=== PATIENT | female | born 1975 | race Caucasian/White ===

== ENCOUNTER 2021-03-23 17:46 | Emergency (ER) | payer SELFPAY ==
--- NOTE | 2021-03-23 19:37 | EDM.PDOC ---
ED HPI GENERAL MEDICAL PROBLEM - General Chief Complaint: ENT Problem Stated Complaint: DENTAL COMPLAINT Time Seen by Provider: 03/23/21 19:19 Source of Information: Reports: Patient, RN Notes Reviewed History Limitations: Reports: No Limitations - History of Present Illness INITIAL COMMENTS - FREE TEXT/NARRATIVE: Patient is a 45-year-old female who presents to the ER for a dental complaint. States that she has been having some aching in her right lower jaw for the last few days however this morning the pain become unmanageable. She has taken 3 tablets of Advil, 2 tablets of naproxen for pain management today. She is concerned because the pain is shooting up into her ear, and down to her neck with some associated swelling into her lower mandible. Patient denies any other sick-like symptoms, fever/chills, cough/shortness of breath, nausea/vomiting/diarrhea. Left Lower Tooth/Teeth Pain Score (Numeric/FACES): 7 - Related Data Allergies Allergy/AdvReac Type Severity Reaction Status Date / Time No Known Allergies Allergy Verified 12/20/17 08:58 CDT Home Meds: Home Meds Amoxicillin/Clavulanate K [Augmentin 875-125 MG] 1 tab PO BID #14 tablet 03/23/21 [Rx] Hydrocodone/Acetaminophen [HYDROcodone-Acetaminophen 5-325 MG] 1 each PO Q6H PRN #12 tablet 03/23/21 [Rx] Past Medical History HEENT History: Reports: Other (See Below) (poor dentition) Social & Family History - Family History Family Medical History: No Pertinent Family History - Tobacco Use Tobacco Use Status *Q: Former Tobacco User Used Tobacco, but Quit: Yes Month/Year Tobacco Last Used: 02/2021 - Caffeine Use Caffeine Use: Reports: None - Recreational Drug Use Recreational Drug Use: No ED ROS ENT - Review of Systems Review Of Systems: Comprehensive ROS is negative, except as noted in HPI. ED EXAM, ENT - Physical Exam Exam: See Below Exam Limited By: No Limitations General Appearance: Alert, WD/WN, No Apparent Distress Eye Exam: Bilateral Eye: EOMI, Normal Inspection, PERRL Mouth/Throat: Normal Inspection, Normal Gums, Normal Lips, Dental Pain (R lower back molar). No: Pharyngeal Erythema, Throat Swelling Neck: Normal Inspection, Supple, Other (very mild tenderness to R lower mandible) Respiratory/Chest: No Respiratory Distress, Lungs Clear, Normal Breath Sounds, No Accessory Muscle Use, Chest Non-Tender Cardiovascular: Normal Peripheral Pulses, Regular Rate, Rhythm, No Edema Extremities: Normal Inspection, Normal Capillary Refill Neurological: Alert, Oriented, Normal Cognition, No Motor/Sensory Deficits Psychiatric: Normal Affect, Normal Mood Skin: Warm, Dry, Intact, Normal Color, No Rash Course - Vital Signs Last Recorded V/S: Last Vital Signs Temp 98.4 F 03/23/21 18:53 Pulse 62 03/23/21 18:53 Resp 20 03/23/21 18:53 BP 141/77 H 03/23/21 18:53 Pulse Ox 10 L 03/23/21 18:53 - Re-Assessments/Exams Free Text/Narrative Re-Assessment/Exam: 03/23/21 19:35 Patient presents to the ER for the evaluation of her dental complaint. We will go ahead and get her started on antibiotics, along with a few tablets of hydrocodone/acetaminophen 5/325 mg. Patient has a full bottle of naproxen tablets we will go ahead and have her take 2 tablets 3 times a day for ongoing management as well. Departure - Departure Time of Disposition: 19:35 Disposition: Home, Self-Care 01 Condition: Good Clinical Impression: Pain, dental - Discharge Information *PRESCRIPTION DRUG MONITORING PROGRAM REVIEWED*: Yes *COPY OF PRESCRIPTION DRUG MONITORING REPORT IN PATIENT SUMI: No Prescriptions: Amoxicillin/Clavulanate K [Augmentin 875-125 MG] 1 tab PO BID #14 tablet Hydrocodone/Acetaminophen [HYDROcodone-Acetaminophen 5-325 MG] 1 each PO Q6H PRN #12 tablet PRN Reason: Pain Instructions: Dental Pain, [id number] Referrals: PCP,None [Primary Care Provider] - Additional Instructions: You have been evaluated in the ED for your dental pain. You have been provided with a script for Augmentin. Please take this medication as directed. (1 tab twice daily's for 7 days or until gone). Please note this antibiotic can take up to 48 hours to provide coverage. If you do not notice an improvement in the swelling within 3 days time I recommend you seek care for reevaluation for change in antibiotics. This antibiotic can cause diarrhea, recommend that you start a probiotic while taking this medication. You already have a bottle of naproxen tablets, these are 220 mg tablets, you will need to take 2 tablets every 12 hours for the next few days for pain management purposes. You were given a prescription for a strong pain medication, hydrocodone/acetaminophen 5/325 mg, please take 1 tab every 6 hours as needed for pain not relieved by Tylenol or ibuprofen alone. Please note this medication does contain Tylenol in it, so do not take more than 4000 mg in a 24- hour time span. These medications can be addictive, so please take as few as possible to achieve adequate pain control. These meds can also be quite constipating, recommend that you increase your oral fluid intake and take a stool softener like MiraLAX while taking these medications. Do not drive while taking this medication. Medications have been electronically prescribed to the [facility] located in the [employer] [facility]. You may use hot pack/ ice packs to the affected area as tolerated in 15-20 minute intervals. You will ultimately need to find a dentist to provide definitive management of your dental pain. The [facility] in [place], [place], , is a clinic that has been known to take people that do not have dental insurance, and may provide payment plans. You might want to check with this provider, regarding your dental pain. Please return to the ED if your symptoms change or worsen. Sepsis Event Note (ED) - Focused Exam Vital Signs: Vital Signs Temp Pulse Resp BP Pulse Ox 03/23/21 18:53 98.4 F 62 20 141/77 H 10 L
== END 2021-03-23 19:44 | disposition home or self-care (01) ==
LOC: JD.ED 17:46
DX: K08.89 Other specified disorders of teeth and supporting structures (principal); Z87.891 Personal history of nicotine dependence
CPT/HCPCS: 99282